=== PATIENT | female | born 1970 | race Caucasian/White ===

== ENCOUNTER 2024-07-12 16:38 | Emergency (ER) | payer SELFPAY ==
[~2024-07-12] VITALS: Ht 170.2 cm; Wt 86.0 kg
[2024-07-12 16:49] VITALS: O2SAT 99
[2024-07-12] MEDS: ACETAMINOPHEN 325MG TABLET PO STA (18:02)
[2024-07-12] MEDS ORDERED: IBUP-2029 MT (19:02)
[2024-07-12 19:42] VITALS: BP 117/60; PULSE 61; RESP 18; TEMP 36.9; O2SAT 99
== END 2024-07-12 19:43 | disposition home or self-care (01) ==
LOC: ER 16:38
DX: S09.90XA Unspecified injury of head, initial encounter (principal); Z98.890 Other specified postprocedural states; Z90.89 Acquired absence of other organs; X58.XXXA Exposure to other specified factors, initial encounter; Y93.89 Activity, other specified; Y92.89 Other specified places as the place of occurrence of the external cause; Y99.8 Other external cause status
CPT/HCPCS: 99284